=== PATIENT | female | born 1980 | race Caucasian/White ===

== ENCOUNTER 2024-05-09 12:42 | Inpatient (IN) | payer OTHER ==
[~2024-05-09] VITALS: Ht 170.2 cm; Wt 89.1 kg
[2024-05-09] VITALS (9 sets, daily range): PULSE 60–115; RESP 16–30; O2SAT 95–99
[2024-05-09] MEDS: methylPREDNISolone sod succ 125mg/2ml vial IV ONE (13:27)
[2024-05-09] MEDS: ipratropium/albuterol 3ml nebule NEB ONE (13:27)
[2024-05-09] MEDS: albuterol 2.5 MG/3 ML nebule CONTNEB ONE (14:50)
[2024-05-09] MEDS ORDERED: ipratropium/albuterol 3ml nebule NEB SCH (15:00)
[2024-05-09 15:14] LABS: BASOPHILS # (AUTO) 0.1 X10'3 (0-0.2); BASOPHILS % (AUTO) 0.5 % (0-1); EOSINOPHILS % (AUTO) 0 % (0-6); HEMATOCRIT 44.8 % (35.0-45.0); HEMOGLOBIN 15.2 g/dl (12.0-16.0); LYMPHOCYTES # (AUTO) 0.8 X10'3 (1.1-4.8); LYMPHOCYTES % (AUTO) 5.1 % (21-51); MEAN CORPUSCULAR HEMOGLOBIN 31.3 PG (27.0-31.0); MEAN CORPUSCULAR HGB CONC 33.8 g/dL (33.0-36.5); MEAN CORPUSCULAR VOLUME 92.4 FL (78-98); MEAN PLATELET VOLUME 6.3 FL (7.4-10.4); MONOCYTES # (AUTO) 0.2 X10'3 (0-0.9); MONOCYTES % (AUTO) 1.2 % (2-12); NEUTROPHILS # (AUTO) 15.3 X10'3 (1.8-7.7); NEUTROPHILS % (AUTO) 93.2 % (42-75); PLATELET COUNT 341 X10'3 (140-440); RED BLOOD COUNT 4.84 X10'6 (4.20-5.60); WHITE BLOOD COUNT 16.4 X10'3 (4.5-11.0)
[2024-05-09 15:28] LABS: ALBUMIN 3.8 G/DL (3.4-5.0); ANION GAP 14 (8-16); BLOOD UREA NITROGEN 15 MG/DL (7-18); BUN/CREATININE RATIO 11.7 (10.0-20.0); CALCIUM 9.3 MG/DL (8.5-10.1); CHLORIDE 103 MMOL/L (99-107); CREATININE 1.28 MG/DL (0.40-0.90); GLUCOSE 128 MG/DL (70-104); POTASSIUM 3.9 MMOL/L (3.5-5.1); SODIUM 141 MMOL/L (135-145); TOTAL CARBON DIOXIDE 24.4 MMOL/L (24-32); eCRCL 55 ML/MIN; eGFR 46 ML/MIN
[2024-05-09] MEDS ORDERED: acetaminophen 325mg tablet PO PRN (16:15)
[2024-05-09] MEDS ORDERED: HYDROcodone/acetaminophen 10/325mg tab PO PRN (16:15)
[2024-05-09] MEDS ORDERED: magnesium sulf-water 2g/50mL 50 ML IV PRN (16:15)
[2024-05-09] MEDS ORDERED: potassium Cl 40MEQ/1/2NS 520ml 520 ML IV PRN (16:15)
[2024-05-09] MEDS ORDERED: mag hydrox/Alum hydrox/simeth 30ml oral suspension PO PRN (16:15)
[2024-05-09] MEDS ORDERED: ondansetron/PF 4mg/2ml inj IV PRN (16:15)
[2024-05-09] MEDS ORDERED: potassium Cl 20 mEq SR tablet PO PRN (16:15)
[2024-05-09] MEDS ORDERED: magnesium Cl slow-release 64mg tablet PO PRN (16:15)
[2024-05-09] MEDS ORDERED: magnesium sulf-water 4G/100mL 100 ML IV PRN (16:15)
[2024-05-09] MEDS ORDERED: HYDROcodone/acetaminophen 5mg/325mg tablet PO PRN (16:15)
[2024-05-09] MEDS ORDERED: albuterol 2.5 MG/3 ML nebule NEB PRN (16:25)
[2024-05-09] MEDS: normal saline 1000ml 1,000 ML IV SCH (16:47)
[2024-05-09 16:57] LABS: PRO BRAIN NATRIURETIC PEPTIDE 230 PG/ML (0-125)
[2024-05-09 17:11] LABS: PROTHROMBIN TIME 10.2 SECONDS (9.0-12.0)
[2024-05-09] MEDS ORDERED: normal saline 1000ml 1,000 ML IV ONE (17:20)
[2024-05-09] MEDS: magnesium sulf-water 2g/50mL 50 ML IV ONE (17:57)
[2024-05-09] MEDS: normal saline 1000ml 1,000 ML IV ONE ×2 (17:57)
[2024-05-09 19:16] LABS: ABG HCO3 18.2 mmol/L (21.0-28.0); ABG PCO2 (T) 29.6 mmHg (32.0-45.0); ABG PH (T) 7.406 (7.350-7.450); ALLEN'S TEST POSITIVE; FCOHb 0.3 % (0.5-1.5); FMetHb 0.2 % (0.0-1.5); FO2Hb 96.5 % (94.0-98.0); MODE ROOM AIR; TOTAL HEMOGLOBIN 15.5 G/dl (12.0-16.0)
[2024-05-09] MEDS: ipratropium/albuterol 3ml nebule NEB SCH (19:19)
[2024-05-09] MEDS ORDERED: TEZE210P SQ (19:23)
[2024-05-09] MEDS ORDERED: PRED10TA PO (19:23)
[2024-05-09] MEDS ORDERED: FAMO40TA58 PO (19:23)
[2024-05-09] MEDS ORDERED: OLOP30.53 INH (19:23)
[2024-05-09] MEDS ORDERED: CLON0.5T4 PO (19:23)
[2024-05-09] MEDS ORDERED: ATRIN PO (19:23)
[2024-05-09] MEDS ORDERED: ONDA-243 PO (19:23)
[2024-05-09] MEDS ORDERED: [UNRECOGNIZED DRUG - CODE] PO (19:23)
[2024-05-09] MEDS ORDERED: ALPR1TAB7 PO (19:23)
[2024-05-09] MEDS ORDERED: LEMB10TA PO (19:23)
[2024-05-09] MEDS ORDERED: IPRA3AMP31 NEB (19:23)
[2024-05-09] MEDS ORDERED: ATOV750O32 PO (19:23)
[2024-05-09] MEDS ORDERED: MONT-40 PO (19:23)
[2024-05-09] MEDS ORDERED: FLUT1BLS16 INH (19:23)
[2024-05-09] MEDS ORDERED: ATR0.5NEB NEB (19:23)
[2024-05-09] MEDS ORDERED: METH-350 PO (19:23)
[2024-05-09] MEDS: furosemide 10 MG/1 ML 10ml inj IV ONE (19:26)
[2024-05-09] MEDS: methylPREDNISolone sod succ/PF 40mg inj. IV SCH (20:00)
[2024-05-09] MEDS: K and/or MAG REPLACEMENT MC SCH (20:00)
[2024-05-09 20:25] LABS: ALBUMIN 3.5 G/DL (3.4-5.0); ANION GAP 17 (8-16); BLOOD UREA NITROGEN 14 MG/DL (7-18); BUN/CREATININE RATIO 9.9 (10.0-20.0); CALCIUM 8.5 MG/DL (8.5-10.1); CHLORIDE 104 MMOL/L (99-107); CREATININE 1.41 MG/DL (0.40-0.90); GLUCOSE 184 MG/DL (70-104); POTASSIUM 3.6 MMOL/L (3.5-5.1); SODIUM 140 MMOL/L (135-145); TOTAL CARBON DIOXIDE 19.1 MMOL/L (24-32); eCRCL 50 ML/MIN; eGFR 41 ML/MIN
[2024-05-09] MEDS: heparin, porcine 5000 units/ml vial SQ SCH (21:23)
[2024-05-09] MEDS: CefTRIAXone/D5W-Rocephin 1gm 50 ML IV SCH (23:30)
[2024-05-09 23:49] LABS: BILIRUBIN,URINE NEGATIVE (Neg); CLARITY,URINE CLEAR (Clear); COLOR,URINE STRAW (Yellow); GLUCOSE, URINE >=1000 mg/dl (Neg); KETONES,URINE NEGATIVE (Neg); LEUKOCYTE ESTERASE ,URINE NEGATIVE (Neg); NITRITES, URINE NEGATIVE (Neg); OCCULT BLOOD,URINE NEGATIVE (Neg); PH,URINE 5.5 (4.8-8.0); PROTEIN,URINE NEGATIVE (Neg); UROBILINOGEN,URINE 0.2 E.U/dL (0.2-1.0)
[2024-05-09 23:55] LABS: RBC,URINE NONE SEEN /HPF (0-2); SQUAMOUS EPITHELIAL CELL,UR FEW /LPF (FEW); UA COLLECTION TYPE CLN CATCH MIDSTREAM; WBC,URINE NONE SEEN /HPF (0-4)
[2024-05-09 23:56] LABS: BACTERIA,URINE NONE SEEN /HPF (Neg); MUCUS STRANDS NONE SEEN /LPF (Neg)
[2024-05-10] VITALS (13 sets, daily range): BP systolic 123–133; BP diastolic 77–85; PULSE 97–113; RESP 11–28; TEMP 97.4–98.3; O2SAT 94–100
[2024-05-10] MEDS ORDERED: methylPREDNISolone sod succ/PF 40mg inj. IV SCH
[2024-05-10] MEDS ORDERED: FLUT16SP2 BOTHNARES (01:17)
[2024-05-10] MEDS ORDERED: CETI10CA PO (01:17)
[2024-05-10 03:39] LABS: BASOPHILS % (AUTO) 0.1 % (0-1); EOSINOPHILS % (AUTO) 0 % (0-6); HEMATOCRIT 40.9 % (35.0-45.0); HEMOGLOBIN 13.8 g/dl (12.0-16.0); LYMPHOCYTES # (AUTO) 0.6 X10'3 (1.1-4.8); LYMPHOCYTES % (AUTO) 2.3 % (21-51); MEAN CORPUSCULAR HEMOGLOBIN 31.2 PG (27.0-31.0); MEAN CORPUSCULAR HGB CONC 33.8 g/dL (33.0-36.5); MEAN CORPUSCULAR VOLUME 92.5 FL (78-98); MEAN PLATELET VOLUME 6.4 FL (7.4-10.4); MONOCYTES # (AUTO) 0.5 X10'3 (0-0.9); NEUTROPHILS # (AUTO) 23.3 X10'3 (1.8-7.7); NEUTROPHILS % (AUTO) 95.6 % (42-75); PLATELET COUNT 333 X10'3 (140-440); RED BLOOD COUNT 4.42 X10'6 (4.20-5.60); RED CELL DISTRIBUTION WIDTH 13.8 % (11.5-14.5); WHITE BLOOD COUNT 24.4 X10'3 (4.5-11.0)
[2024-05-10 03:56] LABS: ALBUMIN 3.3 G/DL (3.4-5.0); ANION GAP 11 (8-16); BLOOD UREA NITROGEN 18 MG/DL (7-18); BUN/CREATININE RATIO 13.8 (10.0-20.0); CALCIUM 8.6 MG/DL (8.5-10.1); CHLORIDE 105 MMOL/L (99-107); GLUCOSE 208 MG/DL (70-104); MAGNESIUM 2.2 MG/DL (1.5-2.4); PHOSPHORUS 2.2 MG/DL (2.3-4.5); POTASSIUM 3.2 MMOL/L (3.5-5.1); SODIUM 139 MMOL/L (135-145); TOTAL CARBON DIOXIDE 23.2 MMOL/L (24-32); eCRCL 54 ML/MIN; eGFR 45 ML/MIN
[2024-05-10 04:10] LABS: PROTHROMBIN TIME 10.6 SECONDS (9.0-12.0)
[2024-05-10] MEDS: methylPREDNISolone sod succ 125mg/2ml vial IV SCH (04:10)
[2024-05-10 04:19] LABS: BANDS% (MANUAL) 1 % (0-10); LYMPHOCYTES % (MANUAL) 5 % (21-51); MONOCYTES % (MANUAL) 2 % (2-12); NEUTROPHILS % (MANUAL) 89 % (42-75); TOTAL CELLS COUNTED 100
[2024-05-10 04:20] LABS: METAMYLEOCYTES% (MANUAL) 3 % (0-0); PLATELET ESTIMATE NORMAL
[2024-05-10] MEDS: potassium Cl 20 mEq SR tablet PO PRN (06:02)
[2024-05-10] MEDS ORDERED: OLOPATADINE HCL INH SCH (08:00)
[2024-05-10] MEDS: montelukast 10mg tablet PO SCH ×2 (08:00→21:00)
[2024-05-10] MEDS ORDERED: CefTRIAXone/D5W-Rocephin 1gm 50 ML IV SCH (08:00)
[2024-05-10] MEDS: ALPRAZolam 0.5mg tablet PO SCH ×2 (08:00→21:01)
[2024-05-10] MEDS: methylphenidate 5mg tablet PO SCH (08:30)
[2024-05-10] MEDS: ATOVAQUONE 750 MG/5 ML ORAL.SUSP PO SCH (09:08)
[2024-05-10] MEDS: loratadine 10mg tablet PO SCH (09:08)
[2024-05-10] MEDS: clonazePAM 0.5mg tablet PO SCH (09:08)
[2024-05-10] MEDS: famotidine 20mg tablet PO SCH (09:08)
[2024-05-10] MEDS: roflumilast 500mcg tablet PO SCH (09:30)
[2024-05-10] MEDS: methylPREDNISolone sod succ/PF 40mg inj. IV SCH (14:05)
[2024-05-10] MEDS ORDERED: clonazePAM 0.5mg tablet PO PRN (20:35)
[2024-05-10] MEDS: zolpidem 5mg tablet PO PRN (21:00)
[2024-05-10] MEDS: clonazePAM 0.5mg tablet PO PRN (21:00)
[2024-05-10] MEDS: Fluticasone/Umeclidin/Vilanter (Trelegy Ellipta 200-62.5-25) IH SCH (21:49)
[2024-05-10 23:15] LABS: ALANINE AMINOTRANSFERASE 19 U/L (12-78); ALBUMIN 3.3 G/DL (3.4-5.0); ALBUMIN/GLOBULIN RATIO 1.3 (1.1-1.5); ALKALINE PHOSPHATASE 57 IU/L (46-116); ANION GAP 8 (8-16); ASPARTATE AMINO TRANSFERASE 9 U/L (10-37); BLOOD UREA NITROGEN 18 MG/DL (7-18); BUN/CREATININE RATIO 15.5 (10.0-20.0); CALCIUM 8.5 MG/DL (8.5-10.1); CHLORIDE 107 MMOL/L (99-107); CREATININE 1.16 MG/DL (0.40-0.90); GLUCOSE 147 MG/DL (70-104); HEMOGLOBIN A1C 5.4 % (4.5-6.2); SODIUM 142 MMOL/L (135-145); TOTAL CARBON DIOXIDE 27.1 MMOL/L (24-32); TOTAL PROTEIN 5.9 G/DL (6.4-8.2); eCRCL 61 ML/MIN; eGFR 51 ML/MIN
[2024-05-11] VITALS (11 sets, daily range): BP systolic 109–123; BP diastolic 69–80; PULSE 87–104; RESP 16–21; TEMP 97.8–99.6; O2SAT 94–97
[2024-05-11 01:17] LABS: BASOPHILS # (AUTO) 0.1 X10'3 (0-0.2); BASOPHILS % (AUTO) 0.3 % (0-1); EOSINOPHILS % (AUTO) 0 % (0-6); HEMATOCRIT 40.8 % (35.0-45.0); HEMOGLOBIN 13.7 g/dl (12.0-16.0); LYMPHOCYTES % (AUTO) 2.9 % (21-51); MEAN CORPUSCULAR HGB CONC 33.6 g/dL (33.0-36.5); MEAN CORPUSCULAR VOLUME 92.4 FL (78-98); MEAN PLATELET VOLUME 6.3 FL (7.4-10.4); MONOCYTES # (AUTO) 1.3 X10'3 (0-0.9); NEUTROPHILS # (AUTO) 30.1 X10'3 (1.8-7.7); NEUTROPHILS % (AUTO) 92.8 % (42-75); PLATELET COUNT 342 X10'3 (140-440); RED BLOOD COUNT 4.41 X10'6 (4.20-5.60); RED CELL DISTRIBUTION WIDTH 13.8 % (11.5-14.5)
[2024-05-11 01:26] LABS: ANION GAP 8 (8-16); BLOOD UREA NITROGEN 20 MG/DL (7-18); BUN/CREATININE RATIO 16.8 (10.0-20.0); CHLORIDE 107 MMOL/L (99-107); CREATININE 1.19 MG/DL (0.40-0.90); GLUCOSE 127 MG/DL (70-104); POTASSIUM 4.2 MMOL/L (3.5-5.1); SODIUM 142 MMOL/L (135-145); TOTAL CARBON DIOXIDE 26.7 MMOL/L (24-32)
[2024-05-11 01:27] LABS: ALBUMIN 3.4 G/DL (3.4-5.0); CALCIUM 8.7 MG/DL (8.5-10.1); MAGNESIUM 2.2 MG/DL (1.5-2.4); PHOSPHORUS 2.8 MG/DL (2.3-4.5); eCRCL 59 ML/MIN; eGFR 50 ML/MIN
[2024-05-11 01:48] LABS: WHITE BLOOD COUNT 32.4 X10'3 (4.5-11.0)
[2024-05-11] MEDS: acetaminophen 325mg tablet PO PRN (09:15)
[2024-05-11] MEDS ORDERED: ALBU2.5V7 NEB (13:19)
[2024-05-11] MEDS ORDERED: CEFD300C3 PO (13:20)
== END 2024-05-11 14:25 | disposition home or self-care (01) | DRG 202 ==
LOC: ER 12:44 → ED HOLD 16:18 → PCU 3S 05-10 14:00
PROVIDERS: ADMIT Internal Medicine; ATTEND Internal Medicine
DX: J45.51 Severe persistent asthma with (acute) exacerbation (principal); J96.01 Acute respiratory failure with hypoxia; N17.0 Acute kidney failure with tubular necrosis; J00 Acute nasopharyngitis [common cold]; Z20.822 Contact with and (suspected) exposure to COVID-19; D72.829 Elevated white blood cell count, unspecified; Z95.810 Presence of automatic (implantable) cardiac defibrillator; Z88.2 Allergy status to sulfonamides; Z90.49 Acquired absence of other specified parts of digestive tract
CPT/HCPCS: 36415; 36600; 71045; 80048; 80053; 81001; 82803; 82948; 83036; 83605; 83735; 83880; 84100; 84145; 84484; 85007; 85018; 85025; 85610; 85651; 87040; 87502; 87503; 87811; 93306; 94640; 94660; 94760; 99285; G0378; J0696; J1644; J1940; J2919; J7030